=== PATIENT | male | born 1995 | race Caucasian/White ===

== ENCOUNTER 2024-02-12 09:32 | Outpatient (CLI) | payer OTHER, SELFPAY ==
--- NOTE | 2024-02-12 | ECG_ITS ---
Test Date: 2024-02-12 09:54:14 Measurements Intervals [place] Rate: 64 P: 43 VT: 164 QRS: 76 QRSD: 94 T: 52 QT: 396 QTc: 411 Interpretive Statements SINUS RHYTHM CANNOT R/O SEPTAL INFARCT, AGE INDETERMINATE ST ELEVATION IN DIFFUSE LEADS- PROBABLY EARLY REPOLARIZATION ABNORMAL ECG No previous ECG available for comparison Electronically Signed On 02-12-2024 17:32:13 CDT by Prakash Tejada D.O.
--- NOTE | ~2024-02-12 | XR_ITS ---
EXAMINATION: XR chest 2V 02/12/2024 09:50 INDICATION: Chest pain PROCEDURE: 2 view chest COMPARISON: No prior studies for comparison. FINDINGS: The lungs are clear. The cardiomediastinal silhouette is within normal limits. There are no pleural effusions. There is no pneumothorax suspected. IMPRESSION: 1: NO ACUTE CARDIOPULMONARY DISEASE. Reviewed, dictated and finalized at location B.
== END 2024-02-12 09:33 | disposition home or self-care (01) ==
DX: R94.31 Abnormal electrocardiogram [ECG] [EKG] (principal); R07.9 Chest pain, unspecified
CPT/HCPCS: 71046; 93005